=== PATIENT | female | born 1975 | race Caucasian/White ===

== ENCOUNTER 2019-05-25 18:51 | Emergency (ER) | payer OTHER, SELFPAY ==
[2019-05-25] MEDS ORDERED: NA CHLORIDE 0.9% 1,000 ML ONE (19:35)
[2019-05-25] MEDS ORDERED: KETOROLAC 30 MG/ML INJ ONE (19:35)
[2019-05-25] MEDS ORDERED: METOCLOPRAMIDE 10 MG/2mL INJ ONE (19:35)
[2019-05-25] MEDS ORDERED: LIDOCAINE VISCOUS 2% SOLN 15 ML UDC ONE (19:35)
[2019-05-25] MEDS ORDERED: NA CHLORIDE 0.9% 100 ML IV ONE (19:35)
[2019-05-25] MEDS ORDERED: MAGNE/ALUM HYDROXD 30 ML UCUP ONE (19:35)
[2019-05-25] MEDS ORDERED: DIPHENHYDRAMINE 50 MG/ML VIAL ONE (19:35)
[2019-05-25] MEDS ORDERED: FAMOTIDINE 20 MG/2 ML VIAL IV ONE (19:36)
[2019-05-25 19:55] LABS: Absolute Lymphocytes (CBC) 1.7 K/uL (0.7-4.9); Basophils % 0.4 % (0-1.3); Hematocrit 38.9 % (36.0-45.0); Lymphocytes % 24.8 % (15.3-44.8); MPV 10.4 fL (7.6-11.3); RBC Red Blood Cell Count 4.25 M/uL (3.86-4.86)
--- NOTE | 2019-05-25 19:57 | RAD REPORT ---
EXAM DESCRIPTION: CT - Head Brain Wo Cont - 05/25/2019 7:36 pm CLINICAL HISTORY: Headache COMPARISON: None. TECHNIQUE: Computed axial tomography of the head was obtained. IV contrast was not requested. All CT scans are performed using dose optimization technique as appropriate and may include automated exposure control or mA/KV adjustment according to patient size. FINDINGS: An intracranial bleed is not seen . The ventricles are normal in caliber. No extra-axial fluid collection is noted. Fluid within the sinuses/ mastoids is not seen. IMPRESSION: No acute intracranial abnormality is seen. If patient's symptoms persist MRI of the bra in would be recommended.
[2019-05-25 20:12] LABS: ALT/SGPT 33 U/L (12-78); AST/SGOT 25 U/L (15-37); Albumin 3.7 g/dL (3.4-5.0); Alkaline Phosphatase 117 U/L (45-117); BUN Blood Urea Nitrogen 7 mg/dL (7-18); Bicarbonate 25 mmol/L (21-32); Bilirubin Direct 0.2 mg/dL (0-0.2); Bilirubin Total 0.5 mg/dL (0.2-1.0); Glucose Level 133 mg/dL (74-106); Lipase 124 U/L (73-393); Potassium 3.5 mmol/L (3.5-5.1); Protein, Total 7.3 g/dL (6.4-8.2); Sodium Level 143 mmol/L (136-145); Troponin (Emerg Dept Use Only) < 0.02 ng/mL (0.0-0.045)
[2019-05-25 20:13] LABS: Urine Blood TRACE (NEG); Urine Glucose NEGATIVE (NEG); Urine Protein NEGATIVE (NEG); Urine pH 5.5 (5.0-7.0)
[2019-05-25 20:35] LABS: Urine Bacteria <20 /HPF (<20); Urine Culture Reflex Order NOT NEEDED; Urine Mucus LIGHT /HPF (NONE SEEN); Urine RBC <5 /HPF (NONE SEEN)
--- NOTE | 2019-05-25 21:48 | ER ---
Nurse's Notes [facility] Name: Zaria Naranjo Age: 44 yrs Sex: Female : 1975 Arrival Date: 05/25/2019 Time: 18:54 Bed 25 Private MD: Diagnosis: Gastritis, unspecified, without bleeding Presentation: 05/25 18:56 Presenting complaint: Patient states: "yesterday my shoulder and my neck was hurting aj1 really bad, then last night the other side of my neck started hurting and it would get really tight and then relax, then at 0230 this morning I woke up and I was hurting so bad that I couldn't hardly breath and I couldn't even sleep. I had a headache all day yesterday and a headache all day today and the pain goes all the way around to my midback" Patient reports neck pain, shoulder pain, chest pain, and abdominal pain. Transition of care: patient was not received from another setting of care. Onset of symptoms was May 2019. Risk Assessment: Do you want to hurt yourself or someone else? Patient reports no desire to harm self or others. Initial Sepsis Screen: Does the patient meet any 2 criteria? No. Patient's initial sepsis screen is negative. Does the patient have a suspected source of infection? No. Patient's initial sepsis screen is negative. Care prior to arrival: None. 18:56 Method Of Arrival: Ambulatory aj1 18:56 Acuity: SANDI 3 aj1 Triage Assessment: 18:59 General: Appears in no apparent distress. comfortable, Behavior is calm, cooperative, aj1 appropriate for age. Pain: Complains of pain in back, chest and abdomen. Neuro: Level of Consciousness is awake, alert, obeys commands. Cardiovascular: Patient's skin is warm and dry. Respiratory: Airway is patent Respiratory effort is even, unlabored, Respiratory pattern is regular, symmetrical. 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 - Coronavirus screen:: The patient has NOT traveled to [place] in the past 14 days. - Social history:: Patient/guardian denies using alcohol, street drugs, The patient lives with family, with spouse, Smoking status: Patient/guardian denies using tobacco. - Family history:: not pertinent. - Ebola Screening: : Patient denies travel to an Ebola-affected area in the 21 days before illness onset. Screenin:42 Abuse screen: Denies threats or abuse. Denies injuries from another. Nutritional mg2 screening: No deficits noted. Tuberculosis screening: No symptoms or risk factors identified. Fall Risk IV access (20 points). Assessment: 19:41 General: Appears in no apparent distress. comfortable, Behavior is calm, cooperative. mg2 Pain: Complains of pain in abdomen Pain radiates to back Pain currently is 4 out of 10 on a pain scale. Quality of pain is described as pressure. Neuro: Level of Consciousness is awake, alert, obeys commands, Oriented to person, place, time, situation. Cardiovascular: Capillary refill < 3 seconds. Respiratory: Airway is patent Respiratory effort is even, unlabored, Respiratory pattern is regular, symmetrical. Respiratory: Reports shortness of breath. GI: Bowel sounds present X 4 quads. Abd is soft and non tender. : EENT: No signs and/or symptoms were reported regarding the EENT system. Derm: Skin is intact, is healthy with good turgor, Skin is pink, warm \\T\\ dry. normal. Musculoskeletal: Circulation, motion, and sensation intact. Capillary refill < 3 seconds. 21:22 Reassessment: Patient appears in no apparent distress at this time. Patient is alert, mg2 oriented x 3, equal unlabored respirations, skin warm/dry/pink. Patient states feeling better. Vital Signs: 18:59 BP 122 / 70; Pulse 74; Resp 18; Temp 97.8; Pulse Ox 98% on R/A; Weight 86.18 kg (R); aj1 Height 5 ft. 4 in. (162.56 cm) (R); Pain 4/10; 20:17 BP 106 / 63; Pulse 62; Resp 18; Pulse Ox 100% on R/A; mg2 21:21 BP 107 / 57; Pulse 73; Resp 18; Pulse Ox 94% on R/A; Pain 0/10; mg2 18:59 Body Mass Index 32.61 (86.18 kg, 162.56 cm) aj1 ED Course: 18:54 Patient arrived in ED. mr 18:59 Triage completed. aj1 18:59 Arm band placed on Patient placed in an exam room. aj1 19:05 Doimnguez Sherwood MD is Attending Physician. ma2 19:08 Francisco Kurtz, RN is Primary Nurse. mg2 19:25 Inserted saline lock: 20 gauge in left antecubital area, using aseptic technique. Blood mg2 collected. 19:36 CT completed. Patient moved back from CT. mw3 19:43 Patient has correct armband on for positive identification. mg2 19:43 No provider procedures requiring assistance completed. mg2 22:24 IV discontinued, intact, bleeding controlled, No redness/swelling at site. Pressure mg2 dressing applied. Administered Medications: 20:01 Drug: Pepcid 20 mg Route: IVP; Site: left antecubital; mg2 22:25 Follow up: Response: No adverse reaction; Marked relief of symptoms mg2 20:02 Drug: GI Cocktail without - (Maalox Suspension 30 ml, Lidocaine Liquid 2 % 15 mg2 ml) Route: PO; 22:25 Follow up: Response: No adverse reaction; Marked relief of symptoms mg2 20:03 Drug: Reglan 20 mg {Note: in iv fluid.} Route: IVP; Site: left antecubital; mg2 22:26 Follow up: Response: No adverse reaction; Marked relief of symptoms mg2 20:03 Drug: TORadol 30 mg Route: IVP; Site: left antecubital; mg2 22:25 Follow up: Response: No adverse reaction; Marked relief of symptoms mg2 20:03 Drug: Benadryl 50 mg Route: IVP; Site: left antecubital; mg2 22:26 Follow up: Response: No adverse reaction; Marked relief of symptoms mg2 20:04 Drug: NS 0.9% 1000 ml Route: IV; Rate: 1 bolus; Site: left antecubital; mg2 22:26 Follow up: Response: No adverse reaction; IV Status: Completed infusion; IV Intake: mg2 1000ml Intake: 22:26 IV: 1000ml; Total: 1000ml. mg2 Outcome: 21:48 Discharge ordered by . ma2 22:26 Discharged to home ambulatory, with family. mg2 22:26 Condition: stable 22:26 Discharge instructions given to patient, family, Instructed on discharge instructions, follow up and referral plans. medication usage, Demonstrated understanding of instructions, follow-up care, medications, Prescriptions given X 3. 22:27 Patient left the ED. mg2 Signatures: Christina Mullins RN RN aj1 Aydee River Mohammad, MD MD ma2 Francisco Kurtz RN RN mg2 Kellie Pizano mw3
--- NOTE | 2019-05-25 21:49 | EDPHYS ---
Physician Documentation [facility] Name: Zaria Naranjo Age: 44 yrs Sex: Female : 1975 Arrival Date: 05/25/2019 Time: 18:54 Bed 25 Private MD: ED Physician Dominguez Sherwood HPI: 05/25 21:46 This 44 yrs old Female presents to ER via Ambulatory with complaints of ma2 Abdominal Pain, Breathing Difficulty, Headache. 21:46 Onset: The symptoms/episode began/occurred gradually, 1 day(s) ago. Associated signs ma2 and symptoms: Pertinent negatives: diaphoresis, fever, nausea. Severity of symptoms: At their worst the symptoms were mild. The patient has not experienced similar symptoms in the past. 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 - Coronavirus screen:: The patient has NOT traveled to [place] in the past 14 days. - Social history:: Patient/guardian denies using alcohol, street drugs, The patient lives with family, with spouse, Smoking status: Patient/guardian denies using tobacco. - Family history:: not pertinent. - Ebola Screening: : Patient denies travel to an Ebola-affected area in the 21 days before illness onset. ROS: 21:46 Constitutional: Negative for fever, chills, and weight loss. ma2 21:46 All other systems are negative. Exam: 21:46 Constitutional: This is a well developed, well nourished patient who is awake, alert, ma2 and in no acute distress. Neck: Trachea midline, no thyromegaly or masses palpated, and no cervical lymphadenopathy. Supple, full range of motion without nuchal rigidity, or vertebral point tenderness. No Meningismus. Chest/axilla: Normal chest wall appearance and motion. Nontender with no deformity. No lesions are appreciated. Cardiovascular: Regular rate and rhythm with a normal S1 and S2. No gallops, murmurs, or rubs. Normal PMI, no JVD. No pulse deficits. Respiratory: Lungs have equal breath sounds bilaterally, clear to auscultation and percussion. No rales, rhonchi or wheezes noted. No increased work of breathing, no retractions or nasal flaring. Abdomen/GI: Soft, non-tender, with normal bowel sounds. No distension or tympany. No guarding or rebound. No evidence of tenderness throughout. MS/ Extremity: Pulses equal, no cyanosis. Neurovascular intact. Full, normal range of motion. Neuro: Awake and alert, GCS 15, oriented to person, place, time, and situation. Cranial nerves II-XII grossly intact. Motor strength 5/5 in all extremities. Sensory grossly intact. Cerebellar exam normal. Normal gait. Vital Signs: 18:59 BP 122 / 70; Pulse 74; Resp 18; Temp 97.8; Pulse Ox 98% on R/A; Weight 86.18 kg (R); aj1 Height 5 ft. 4 in. (162.56 cm) (R); Pain 4/10; 20:17 BP 106 / 63; Pulse 62; Resp 18; Pulse Ox 100% on R/A; mg2 21:21 BP 107 / 57; Pulse 73; Resp 18; Pulse Ox 94% on R/A; Pain 0/10; mg2 18:59 Body Mass Index 32.61 (86.18 kg, 162.56 cm) aj1 MDM: 19:05 Patient medically screened. ma2 21:46 Differential diagnosis: gastritis, pud, GERD. Data reviewed: vital signs, nurses notes. ma2 Counseling: I had a detailed discussion with the patient and/or guardian regarding: the historical points, exam findings, and any diagnostic results supporting the discharge/admit diagnosis, the presence of at least one elevated blood pressure reading (>120/80) during this emergency department visit. Response to treatment: the patient's symptoms have resolved after treatment. 05/25 19:21 Order name: Basic Metabolic Panel [facility] 05/25 19:21 Order name: CBC with Diff [facility] 05/25 19:21 Order name: Creatinine for Radiology [facility] 05/25 19:21 Order name: Hepatic Function [facility] 05/25 19:21 Order name: Lipase [facility] 05/25 19:21 Order name: Troponin (emerg Dept Use Only) [facility] 05/25 19:59 Order name: Urine Dipstick--Ancillary (enter results) pr 05/25 19:59 Order name: Urine --Ancillary (enter results) pr 05/25 20:02 Order name: CBC with Automated Diff; Complete Time: 21:14 EDMS 05/25 20:13 Order name: Basic Metabolic Panel; Complete Time: 21:14 [facility] 05/25 20:13 Order name: Liver (Hepatic) Function; Complete Time: 21:14 [facility] 05/25 20:13 Order name: Troponin (Emerg Dept Use Only); Complete Time: 21:14 [facility] 05/25 20:13 Order name: Lipase; Complete Time: 21:14 [facility] 05/25 20:16 Order name: Urine --Ancillary; Complete Time: 21:14 [facility] 05/25 19:21 Order name: IV Saline Lock; Complete Time: 19:34 [facility] 05/25 19:21 Order name: Labs collected and sent; Complete Time: 19:35 [facility] 05/25 19:21 Order name: CT Head Brain wo Cont [facility] 05/25 19:21 Order name: EKG - Nurse/Tech; Complete Time: 19:34 [facility] 05/25 20:16 Order name: Urine Dipstick-Ancillary; Complete Time: 21:14 [facility] 05/25 20:19 Order name: Urine Microscopic Only [facility] 05/25 20:22 Order name: Creatinine (Radiology Only); Complete Time: 21:14 [facility] 05/25 20:23 Order name: CT; Complete Time: 21:14 [facility] 05/25 20:37 Order name: Urine Microscopic Only; Complete Time: 21:14 EDMS Administered Medications: 20:01 Drug: Pepcid 20 mg Route: IVP; Site: left antecubital; mg2 22:25 Follow up: Response: No adverse reaction; Marked relief of symptoms mg2 20:02 Drug: GI Cocktail without - (Maalox Suspension 30 ml, Lidocaine Liquid 2 % 15 mg2 ml) Route: PO; 22:25 Follow up: Response: No adverse reaction; Marked relief of symptoms mg2 20:03 Drug: Reglan 20 mg {Note: in iv fluid.} Route: IVP; Site: left antecubital; mg2 22:26 Follow up: Response: No adverse reaction; Marked relief of symptoms mg2 20:03 Drug: TORadol 30 mg Route: IVP; Site: left antecubital; mg2 22:25 Follow up: Response: No adverse reaction; Marked relief of symptoms mg2 20:03 Drug: Benadryl 50 mg Route: IVP; Site: left antecubital; mg2 22:26 Follow up: Response: No adverse reaction; Marked relief of symptoms mg2 20:04 Drug: NS 0.9% 1000 ml Route: IV; Rate: 1 bolus; Site: left antecubital; mg2 22:26 Follow up: Response: No adverse reaction; IV Status: Completed infusion; IV Intake: mg2 1000ml Disposition: 05/25/19 21:48 Discharged to Home. Impression: Gastritis, unspecified, without bleeding. - Condition is Stable. - Discharge Instructions: Gastritis, Adult. - Prescriptions for Reglan 10 mg Oral Tablet - take 1 tablet by ORAL route every 6 hours take 30 minutes before meals and at bedtime; 20 tablet. Pepcid 20 mg Oral Tablet - take 1 tablet by ORAL route once daily; 20 tablet. Tramadol 50 mg Oral Tablet - take 1 tablet by ORAL route every 8 hours as needed; 12 tablet. - Medication Reconciliation Form, Thank You Letter, Antibiotic Education, Prescription Opioid Use form. - Follow up: Private Physician; When: Tomorrow; Reason: Continuance of care. Signatures: Dispatcher [employer] EDChristina Leon RN RN aj1 Dominguez Sherwood MD MD ma2 Francisco Kurtz RN RN mg2 Corrections: (The following items were deleted from the chart) 22:27 21:48 05/25/2019 21:48 Discharged to Home. Impression: Gastritis, unspecified, without mg2 bleeding. Condition is Stable. Prescriptions for Reglan 10 mg Oral Tablet - take 1 tablet by ORAL route every 6 hours take 30 minutes before meals and at bedtime; 20 tablet, Tylenol-Codeine #3 300-30 mg Oral Tablet - take 2 tablet by ORAL route every 6 hours As needed; 30 tablet, Pepcid 20 mg Oral Tablet - take 1 tablet by ORAL route once daily; 20 tablet. and Forms are Medication Reconciliation Form, Thank You Letter, Antibiotic Education, Prescription Opioid Use. Follow up: Private Physician; When: Tomorrow; Reason: Continuance of care. ma2
[2019-05-25 22:54] VITALS: TEMP 97.8
[2019-05-25 22:56] VITALS: BP 107/57; O2SAT 94
--- NOTE | 2019-05-26 11:24 | EKG ---
Test Date: 2019-05-25 Test Time: 19:26:02 Learning And Development Officer: MG MEASUREMENT RESULTS: Intervals: Rate: 74 NJ: 154 QRSD: 90 QT: 396 QTc: 439 Ayr: P: 59 NJ: 154 QRS: 36 T: 2 INTERPRETIVE STATEMENTS: Normal sinus rhythm Possible Anterior infarct, age undetermined Abnormal ECG No previous ECG available for comparison Electronically Signed On 05-26-19 11:23:35 LEAD SYSTEMS ANALYST by Eulogio Farias
== END 2019-05-25 22:27 | disposition home or self-care (01) ==
LOC: ER 18:51
DX: K29.70 Gastritis, unspecified, without bleeding (principal); Z88.0 Allergy status to penicillin
CPT/HCPCS: 36415; 70450; 80048; 80076; 81003; 81015; 81025; 83690; 84484; 85025; 93005; 96361; 96374; 96375; 99284; J1200; J2765; J7030

== ENCOUNTER 2023-09-01 19:08 | Emergency (ER) | payer SELFPAY ==
[2023-09-01] MEDS ORDERED: KETOROLAC 30 MG/ML INJ ONE (19:59)
[2023-09-01] MEDS ORDERED: methocarbamoL 500 MG TAB ONE (19:59)
--- NOTE | 2023-09-01 20:57 | RAD REPORT ---
EXAM DESCRIPTION: RAD - Chest Single View - 09/01/2023 8:49 pm CLINICAL HISTORY: L upper chest wall ttp COMPARISON: No comparisons FINDINGS: Lines: None. Lungs: No evidence of edema or pneumonia. Pleural: No significant pleural effusions or pneumothorax. Cardiac: The heart size is within normal limits. Mediastinum: Within normal limits. Bones: No acute fractures. Other: None IMPRESSION: No acute cardiopulmonary disease.
--- NOTE | 2023-09-01 20:57 | RAD REPORT ---
EXAM DESCRIPTION: RAD - Ribs Left - 09/01/2023 8:49 pm CLINICAL HISTORY: L upper chest wall ttp COMPARISON: Chest Single View dated 09/01/2023 FINDINGS/IMPRESSION: No displaced left-sided rib fractures identified. No pneumothorax. Nondisplaced rib fractures may not be apparent on conventional radiography.
--- NOTE | 2023-09-01 21:04 | ER ---
Nurse's Notes [facility] Name: Zaria Eller Age: 48 yrs Sex: Female : 1975 Arrival Date: 09/01/2023 Time: 19:08 Bed 17 Private MD: Diagnosis: Sprain of ribs Presentation: 08/31 19:31 Chief complaint: Patient states: fell from [employer] ladder on the 18. pain to left lg3 shoulder and chest and upper back. worsens with cough, bending and deep breathing. Coronavirus screen: Client denies travel out of the [place] in the last 14 days. At this time, the client does not indicate any symptoms associated with coronavirus-19. Ebola Screen: No symptoms or risks identified at this time. Initial Sepsis Screen: Does the patient meet any 2 criteria? No. Patient's initial sepsis screen is negative. Does the patient have a suspected source of infection? No. Patient's initial sepsis screen is negative. Risk Assessment: Do you want to hurt yourself or someone else? Patient reports no desire to harm self or others. Onset of symptoms was August 25, 2023. 19:31 Method Of Arrival: Ambulatory lg3 19:31 Acuity: SANDI 3 lg3 Triage Assessment: 19:34 General: Appears in no apparent distress. comfortable, Behavior is calm, cooperative. lg3 Pain: Complains of pain in left clavicle and anterior aspect of left upper chest Pain radiates to left scapular area. EENT: No deficits noted. No signs and/or symptoms were reported regarding the EENT system. Neuro: No deficits noted. Hillman Agitation-Sedation Scale (RASS): 0 - Alert and Calm Level of Consciousness is awake, alert, obeys commands, Oriented to person, place, time, situation. Cardiovascular: No deficits noted. Denies chest pain, shortness of breath, Heart tones S1 S2 present Capillary refill < 3 seconds Clubbing of nail beds is absent JVD is absent Patient's skin is warm and dry. Respiratory: No deficits noted. Airway is patent Respiratory effort is even, unlabored, Respiratory pattern is regular, symmetrical. GI: No deficits noted. No signs and/or symptoms were reported involving the gastrointestinal system. : No deficits noted. No signs and/or symptoms were reported regarding the genitourinary system. Derm: No deficits noted. No signs and/or symptoms reported regarding the dermatologic system. Skin is intact, is healthy with good turgor, Skin is dry, Skin is normal, Skin temperature is warm. Musculoskeletal: Circulation, motion, and sensation intact. Range of motion: intact in all extremities, Reports pain in left clavicle and anterior aspect of left upper chest. Injury Description: fall. 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 - Infectious Disease History:: Denies. - Social history:: Smoking status: Patient denies any tobacco usage or history of. Patient/guardian denies using alcohol, street drugs. Screenin:50 [facility] ED Fall Risk Assessment (Adult) History of falling in the last 3 months, jw7 including since admission Yes- single mechanical fall (1 pt) Confusion or Disorientation No (0 pts) Intoxicated or Sedated No (0 pts) Impaired Gait No (0 pts) Mobility Assist Device Used No (0 pt) Altered Elimination No (0 pt) Score/Fall Risk Level 0 - 2 = Low Risk Oriented to surroundings, Maintained a safe environment, Educated pt \T\ family on fall prevention, incl call for assistance when getting out of bed. Abuse screen: Denies threats or abuse. Denies injuries from another. Nutritional screening: No deficits noted. Tuberculosis screening: No symptoms or risk factors identified. Assessment: 19:50 General: Appears in no apparent distress. comfortable, Behavior is calm, cooperative, jw7 appropriate for age. Pain: Complains of pain in anterior aspect of left upper chest and left clavicle Pain radiates to back and left scapular area and chest Pain currently is 6 out of 10 on a pain scale. Quality of pain is described as sharp, Pain began 2-3 days ago. Is intermittent. Neuro: Level of Consciousness is awake, alert, obeys commands, Oriented to person, place, time, situation, Appropriate for age. Cardiovascular: Heart tones S1 S2 present Capillary refill < 3 seconds Clubbing of nail beds is absent JVD is absent Patient's skin is warm and dry. Respiratory: Airway is patent Trachea midline Respiratory effort is even, unlabored, Respiratory pattern is regular, symmetrical, Breath sounds are clear bilaterally. GI: Abdomen is flat, non-distended, Bowel sounds present X 4 quads. Abd is soft and non tender X 4 quads. : No deficits noted. No signs and/or symptoms were reported regarding the genitourinary system. EENT: No deficits noted. No signs and/or symptoms were reported regarding the EENT system. Derm: Skin is intact, is healthy with good turgor, Skin is dry, Skin is normal, Skin temperature is warm. Musculoskeletal: Circulation, motion, and sensation intact. Range of motion: limited in left shoulder. 20:00 Reassessment: Patient appears in no apparent distress at this time. No changes from jw7 previously documented assessment. Patient and/or family updated on plan of care and expected duration. Pain level reassessed. Patient is alert, oriented x 3, equal unlabored respirations, skin warm/dry/pink. Vital Signs: 19:31 BP 118 / 82; Pulse 76; Resp 17 S; Temp 97.7(O); Pulse Ox 100% on R/A; Weight 77.11 kg lg3 (R); Height 5 ft. 5 in. (R); 20:00 BP 114 / 73; Pulse 69; Resp 15 S; Pulse Ox 98% on R/A; jw7 21:00 BP 109 / 68; Pulse 62; Resp 16 S; Pulse Ox 98% on R/A; jw7 19:31 Body Mass Index 28.29 (77.11 kg, 165.1 cm) lg3 ED Course: 19:20 Patient arrived in ED. gm2 19:21 Walter Lorenzo MD is Attending Physician. ec2 19:34 Triage completed. lg3 19:34 Arm band placed on right wrist. lg3 19:50 Patient has correct armband on for positive identification. Bed in low position. Call jw7 light in reach. Provided Education on: Use of Call Light. 19:53 Deana Beal RN is Primary Nurse. jw7 20:50 CXR XRAY In Process Unspecified. EDMS 20:50 Ribs Left XRAY In Process Unspecified. EDMS 21:15 No provider procedures requiring assistance completed. Patient did not have IV access jw7 during this emergency room visit. Administered Medications: 20:06 Drug: Ketorolac IM 15 mg IM once Route: IM; Site: right deltoid; jw7 21:14 Follow up: Response: No adverse reaction; Marked relief of symptoms jw7 20:06 Drug: Methocarbamol PO 500 mg PO once Route: PO; jw7 21:14 Follow up: Response: No adverse reaction; No change in condition jw7 Medication: 21:15 VIS not applicable for this client. jw7 Outcome: 21:03 Discharge ordered by . patel 21:15 Discharged to home ambulatory, jw7 21:15 Condition: stable 21:15 Discharge instructions given to patient, Instructed on discharge instructions, follow up and referral plans. medication usage, Demonstrated understanding of instructions, follow-up care, medications, Prescriptions given X 1, 21:15 Patient left the ED. jw7 Signatures: Dispatcher [employer] Sveta Michaud RN RN lg3 Deana Beal RN RN jw7 Walter Lorenzo MD MD ec2 Sarika Hylton [facility]
--- NOTE | 2023-09-01 21:04 | EDPHYS ---
Physician Documentation [facility] Name: Zaria Eller Age: 48 yrs Sex: Female : 1975 Arrival Date: 09/01/2023 Time: 19:08 Bed 17 Private MD: ED Physician Walter Lorenzo HPI: 08/31 19:42 This 48 yrs old Female presents to ER via Ambulatory with complaints of ec2 Shoulder Injury, Shoulder Pain. 19:42 Patient arrives today for evaluation of 1 week of upper chest wall pain. Patient ec2 reports that she was working and subsequently had injured her left upper chest. States that the pain is worse with movement and positional changes. Patient reports that she has not taken any [id number] medications for the symptoms.. 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 - Infectious Disease History:: Denies. - Social history:: Smoking status: Patient denies any tobacco usage or history of. Patient/guardian denies using alcohol, street drugs. ROS: 19:42 Constitutional: as per hpi ec2 Exam: 19:42 Constitutional: GEN: NAD Head: atraumatic Eyes: EOMI Ears: External ears are ec2 normal. CV: regular rate LUNGS: no respiratory distress ABD: non-distended SKIN: no evidence of rashes MSK: no evidence of trauma, good range of motion of the left upper extremity, pinpoint TTP without deformities or crepitus noted to the left upper chest wall. NEURO: moves all extremities equally Vital Signs: 19:31 BP 118 / 82; Pulse 76; Resp 17 S; Temp 97.7(O); Pulse Ox 100% on R/A; Weight 77.11 kg lg3 (R); Height 5 ft. 5 in. (R); 20:00 BP 114 / 73; Pulse 69; Resp 15 S; Pulse Ox 98% on R/A; jw7 21:00 BP 109 / 68; Pulse 62; Resp 16 S; Pulse Ox 98% on R/A; jw7 19:31 Body Mass Index 28.29 (77.11 kg, 165.1 cm) lg3 MDM: 19:26 Patient medically screened. ec2 19:42 Data reviewed: vital signs. ED course: Patient arrives today for evaluation of left ec2 upper chest wall pain. Examination remarkable for MSK findings as noted above. Will give the patient Toradol as well as Robaxin for the patient's chest wall pain. Differential diagnosis includes muscle contusion, muscle tear, rib fracture. Doubt ACS, doubt PE, doubt dissection. 20:51 ED course: Chest x-ray and rib x-rays independently reviewed and interpreted by me, ec2 show no evidence of bony fracture, no evidence of pneumothorax.. 08/31 19:41 Order name: CXR XRAY; Complete Time: 21:02 ec2 08/31 19:41 Order name: Ribs Left XRAY; Complete Time: 21:02 ec2 Administered Medications: 20:06 Drug: Ketorolac IM 15 mg IM once Route: IM; Site: right deltoid; jw7 21:14 Follow up: Response: No adverse reaction; Marked relief of symptoms jw7 20:06 Drug: Methocarbamol PO 500 mg PO once Route: PO; jw7 21:14 Follow up: Response: No adverse reaction; No change in condition jw7 Disposition Summary: 09/01/23 21:03 Discharge Ordered Notes: Location: Home ec2 Condition: Stable ec2 Diagnosis - Sprain of ribs ec2 Followup: ec2 - With: Private Physician - When: - Reason: Re-evaluation by your physician Discharge Instructions: - Discharge Summary Sheet ec2 - Rib Contusion ec2 Forms: - Medication Reconciliation Form ec2 - Antibiotic Education ec2 - Prescription Opioid Use ec2 - Patient Portal Instructions ec2 - Leadership Thank You Letter ec2 Prescriptions: - methocarbamol 500 mg Oral tablet - take 2 tablets ORAL route 4 times per day; 30 tablet; Refills: 0, Product ec2 Selection Permitted Signatures: Dispatcher [employer] Sveta Michaud RN RN lg3 Deana Beal RN RN jw7 Walter Lorenzo MD MD ec2 Corrections: (The following items were deleted from the chart) 19:42 19:42 Ribs Left+RAD.RAD.BRZ ordered. EDMS EDMS
[2023-09-01 21:58] VITALS: BP 109/68; TEMP 97.7; O2SAT 98
== END 2023-09-01 21:15 | disposition home or self-care (01) ==
LOC: ER 19:08
DX: S23.41XA Sprain of ribs, initial encounter (principal)
CPT/HCPCS: 71045; 96372; 99284